=== PATIENT | male | born 1970 ===

== ENCOUNTER 2023-06-15 10:06 | Outpatient (CLI) | payer OTHER, SELFPAY ==
[2023-06-15 19:33] LABS: Alanine Aminotransferase 26 U/L (6-50); Albumin Level 4.6 g/dL (3.5-5.1); Alkaline Phosphatase 57 U/L (38-126); Anion Gap 7 mmol/L (4-12); Aspartate Amino Transferase 44 U/L (17-59); Bilirubin,Total 0.8 mg/dL (0.2-1.3); Blood Urea Nitrogen 20 mg/dL (9-20); Calcium 9.5 mg/dL (8.4-10.2); Carbon Dioxide 26 mmol/L (22-30); Chloride 107 mmol/L (98-107); Cholesterol 145 mg/dL (0-200); Estimated Glomerular Filt Rate 58; Glucose 112 mg/dL (65-110); HDL Direct 78 mg/dL; Potassium 4.8 mmol/L (3.4-5.0); Sodium 140 mmol/L (137-145); Triglycerides 69 mg/dL (<150); Uric Acid 4.2 mg/dL (3.5-8.5)
[2023-06-15 19:47] LABS: LDL Cholesterol Direct 56 mg/dL
[2023-06-15 20:05] LABS: Prostate Specific Antigen 0.8 ng/mL (< OR = 4.0)
== END 2023-06-15 10:07 | disposition home or self-care (01) ==
LOC: ANHGOSHLAB 10:08
PROVIDERS: PCP Family Medicine; Visit Provider Family Medicine
DX: Z12.5 Encounter for screening for malignant neoplasm of prostate (principal); E78.5 Hyperlipidemia, unspecified; M10.9 Gout, unspecified; Z13.228 Encounter for screening for other metabolic disorders
CPT/HCPCS: 36415; 80053; 80061; 84153; 84550; G0103